=== PATIENT | female | born 1995 | race Caucasian/White ===

== ENCOUNTER 2018-10-06 10:51 | Inpatient (IN) ==
[2018-10-06] MEDS ORDERED: ROMAZICON (DOSE) IV ONE (10:57)
[2018-10-06] MEDS ORDERED: NS 500 ML IV ONE (10:57)
[2018-10-06 11:04] LABS: BLOOD TYPE ARTERIAL; SAMPLE BLOOD
[2018-10-06 11:09] LABS: ALLEN TEST YES; BE -5.8 mmoll (-3.0-3.0); HCO3-(ACT) 20.4 mmoll (20.0-26.0); METHB 1.1 % (0.0-1.5); O2HB 97.9 % (95.0-99.0); PCO2(98.6) 40 mmHg (35-45); PO2(98.6) 373 mmHg (60-100); THB 11.6 g/dL (11.5-17.4); pH(98.6) 7.31 (7.35-7.45)
[2018-10-06 11:10] LABS: MODALITY NRB
[2018-10-06] MEDS ORDERED: ATIVAN IV ONE (11:16)
[2018-10-06] MEDS ORDERED: ATIVAN ONE (11:18)
--- NOTE | 2018-10-06 11:18 | Diag Imaging Result Doc PS360 ---
EXAM: CHEST-PORTABLE HISTORY: overdose TECHNIQUE: Chest single view COMPARISON: None. FINDINGS: Poor inspiratory effort. The heart is not enlarged. The vessels are not distended. There are no infiltrates. No effusion identified. IMPRESSION: Negative exam. Electronically signed by Zaheer Carson 10/06/2018 11:16 AM
[2018-10-06 11:22] LABS: BASO# 0.03 X1000 (0.0-0.2); BASO% 0.3 % (0.0-0.8); EOS# 0.05 X1000 (0.0-0.7); EOS% 0.5 % (0.0-10.0); HEMATOCRIT 35.7 % (37.0-47.0); HEMOGLOBIN 11.7 g/dL (12.0-16.0); IMM GRAN# 0.02 X1000 (0.0-0.04); IMM GRAN% 0.2 % (0.0-0.5); LYMPH# 2.35 X1000 (1.2-3.4); LYMPH% 23.7 % (20.5-51.1); MCH 28.9 PG (27-31); MCHC 32.8 g/dL (33-37); MCV 88.1 FL (81-99); MONO# 0.74 X1000 (0.11-0.59); MONO% 7.5 % (1.7-9.3); MPV 9.2 FL (7.4-10.4); NEUT# 6.71 X1000 (1.4-6.5); NEUT% 67.8 % (42.2-75.2); PLT 502 X1000 (130-400); RBC 4.05 XMIL (4.2-5.4); RDW 12.6 % (11.5-14.5)
[2018-10-06 11:36] LABS: AGAP 19; ALB/GLOB RATIO 1.3; ALBUMIN 4.3 g/dL (3.5-5.0); ALKALINE PHOSPHATASE 89 U/L (32-104); BUN 5 mg/dL (8-22); CALCIUM 9.2 mg/dL (8.8-10.2); CHLORIDE 106 mmol/L (98-107); COSMO 284; CREATININE 0.6 mg/dL (0.5-0.9); ESTIMATED GFR > 60; GLUCOSE 93 mg/dL (70-104); GOT 12 U/L (10-30); GPT 14 U/L (10-36); SODIUM 144 mmol/L (136-145); TCO2 19 mmol/L (25-35); TOTAL BILIRUBIN 0.22 mg/dL (0.20-1.00); TOTAL PROTEIN 7.6 g/dL (6.3-8.3)
[2018-10-06 12:00] LABS: URINE SOURCE CATH
[2018-10-06 12:08] LABS: BILIRUBIN URINE NEGATIVE (NEGATIVE); BLOOD URINE SMALL (NEGATIVE); COLOR YELLOW; GLUCOSE URINE NEGATIVE (NEGATIVE); KETONE URINE NEGATIVE (NEGATIVE); LEUKOCYTES URINE NEGATIVE (NEGATIVE); NITRITE URINE NEGATIVE (NEGATIVE); PROTEIN URINE TRACE mg/dL (NEGATIVE); SP GRAVITY URINE 1.008; TURBIDITY URINE CLEAR (CLEAR); UROBILINOGEN URINE NORMAL (NORMAL)
[2018-10-06 12:09] LABS: UR EPITHELIAL CELLS <10 /HPF (<10); URINE BACTERIA NEGATIVE /HPF; URINE RBC <10 /HPF (<10); URINE WBC <10 /HPF (<10)
[2018-10-06 12:21] LABS: UR AMPHETAMINES QUAL NONE DETECTED (NONE DETECT); UR BARBITUATES QUAL NONE DETECTED (NONE DETECT); UR BENZODIAZEPIN QUAL PRESUMPTIVE POSITIVE (NONE DETECT); UR CANNABINOIDS QUAL NONE DETECTED (NONE DETECT); UR COCAINE QUAL NONE DETECTED (NONE DETECT); UR METHADONE QUAL NONE DETECTED (NONE DETECT); UR OPIATES QUAL NONE DETECTED (NONE DETECT); UR OXYCODONE QUAL NONE DETECTED (NONE DETECT); UR PCP QUAL NONE DETECTED (NONE DETECT)
--- NOTE | 2018-10-06 13:20 | EKG Report ---
Test Performed on : 10/06/2018 10:53:38 AM Test Reason : evaluate QRS Blood Pressure : / mmHG Vent. Rate : 131 BPM Atrial Rate : 131 BPM P-R Int : 140 ms QRS Dur : 076 ms QT Int : 316 ms P-R-T Axes : 047 047 026 degrees QTc Int : 466 ms Sinus tachycardia. Cannot rule out Inferior infarct , age undetermined Cannot rule out Anterior infarct , age undetermined Abnormal ECG No previous ECGs available Unconfirmed Result
[2018-10-06] MEDS ORDERED: NS + KCL 40 MEQ 1,000 ML IV ONE (13:46)
--- NOTE | 2018-10-06 13:50 | PROVIDER DOCUMENTATION ---
This chart was entered by Leticia Aguirre Scribe, acting as scribe for Queenie Jane MD. [id number] Abuse/Overdose - General Stated Complaint: OVERDOSE Time Seen by Provider: 10/06/18 10:53 Source: EMS Allergies/Adverse Reactions: Allergies Allergy/AdvReac Type Severity Reaction Status Date / Time No Known Allergies Allergy Verified 10/06/18 11:04 - History of Present Illness-Drug/Alcohol Nature of Presenting Problem: Patient is a 23 year old female who presents to the ED via EMS for overdose. EMS states patient's girlfriend stated patient took 6 mg of Klonopin, unknown amount of Amitriptyline and Zofran 1 hour ago. EMS states giving patient 2 mg of Versed in route due to patient being combative. This episode of drinking or use began:: 1 hour ago Situational problems related to:: reports: N/A Any injuries associated with this episode of intoxication?: No Similar Symptoms Previously?: No Recently seen or treated by another doctor?: No Review of Systems - Adult - REVIEW OF SYSTEMS - ADULT ROS:: unobtainable per condition Constitutional: reports: no symptoms reported Eyes: reports: no symptoms reported Ears, Nose, Mouth & Throat: reports: no symptoms reported Cardiovascular: reports: no symptoms reported Respiratory: reports: no symptoms reported Gastrointestinal: reports: no symptoms reported Genitourinary: reports: no symptoms reported Musculoskeletal: reports: no symptoms reported Integumentary: reports: no symptoms reported Neurological: reports: no symptoms reported Psychiatric: reports: no symptoms reported Endocrine: reports: no symptoms reported Hematologic/Lymphatic: reports: no symptoms reported Allergic/Immunologic: reports: no symptoms reported All Other Systems: Reviewed and Negative Past History - Adult - PAST MEDICAL HISTORY-ADULT Review of Records: reports: Nursing Assessment Review, Medications Reviewed, Social history reviewed & non-contributory. Major Childhood Illnesses: reports: denies history Cardiovascular: reports: denies history Respiratory: reports: denies history Gastrointestinal: reports: denies history Obstetrical/Gynecological: reports: denies history Genitourinary: reports: denies history Musculoskeletal: reports: denies history Neurological: reports: denies history Psychiatric: reports: denies history Endocrine/Immune: reports: denies history Other Conditions: reports: denies history - PRIOR SURGERIES/PROCEDURES Surgical/Procedure History: reports: reviewed, not pertinent - IMMUNIZATION STATUS Childhood Immunizations: See Nurse Assessment Flu Vaccine: See Nurse Assessment - FAMILY HISTORY Family History: reviewed, not pertinent Physical Exam-General - PHYSICAL EXAM-ADULT Initial Vital Signs Reviewed: Yes - CONSTITUTIONAL General Appearance: no apparent distress, obtunded. negative: anxious - RESPIRATORY Respiratory: chest non-tender, lungs clear, normal breath sounds. negative: crackles, rhonchi - CARDIOVASCULAR Cardiovascular: normal peripheral pulses, tachycardia. negative: systolic murmur - MUSCULOSKELETAL Extremity: normal inspection. negative: deformity, erythema, swelling - SKIN Integumentary: normal color, normal turgor, warm/dry. negative: cyanosis, ecchymosis, erythema, jaundice - NEUROLOGIC Neurologic: other (unable to assess per patient's condition) - PSYCHIATRIC Psych/Mental Status: other (obtunded). negative: anxious, disheveled Progress - PLAN OF CARE/RESULTS Progress/Plan/Lab Results: Vital Signs - 8 hr 10/06/18 10:57 10/06/18 12:14 10/06/18 12:17 Temperature 98.7 F Pulse Rate 130 H 105 H 103 H Respiratory Rate 13 22 21 Blood Pressure 137/86 94/48 O2 Sat by Pulse Oximetry 100 100 98 10/06/18 12:20 10/06/18 12:30 10/06/18 12:40 Temperature Pulse Rate 102 H 102 H 102 H Respiratory Rate 22 21 21 Blood Pressure O2 Sat by Pulse Oximetry 100 100 100 Laboratory Results - last 24 hr 10/06/18 10/06/18 10/06/18 10:47 10:47 10:50 WBC 9.90 RBC 4.05 L Hgb 11.7 L Hct 35.7 L MCV 88.1 MCH 28.9 MCHC 32.8 L RDW Std Deviation 12.6 Plt Count 502 H MPV 9.2 Immature Gran % (Auto) 0.2 Neut % (Auto) 67.8 Lymph % (Auto) 23.7 [place] % (Auto) 7.5 Eos % (Auto) 0.5 Baso % (Auto) 0.3 Immature Gran # (Auto) 0.02 Neut # (Auto) 6.71 H Lymph # (Auto) 2.35 [place] # (Auto) 0.74 H Eos # (Auto) 0.05 Baso # (Auto) 0.03 Specimen Type ARTERIAL Sample Site R RADIAL pH 7.31 L pCO2 40 pO2 373 H HCO3 20.4 Base Excess -5.8 L Oxyhemoglobin 97.9 ABG O2 Sat (Calculated) 17.0 ABG O2 Saturation 100.0 ABG Carboxyhemoglobin 1.00 ABG Methemoglobin 1.1 Gabriel Test YES A-a O2 Difference 290.0 Total Hemoglobin 11.6 Lactate 4.10 H Liter Flow 15.0 Blood Gas Modality NRB FiO2 % 100.0 Sodium 144 Potassium 3.0 L Chloride 106 Carbon Dioxide 19 L Anion Gap 19 BUN 5 L Creatinine 0.6 Estimated GFR/1.73 m2 > 60 BUN/Creatinine Ratio 8 Glucose 93 Calculated Osmolality 284 Calcium 9.2 Total Bilirubin 0.22 AST 12 ALT 14 Alkaline Phosphatase 89 Total Protein 7.6 Albumin 4.3 Globulin 3.3 Albumin/Globulin Ratio 1.3 Urine Source Urine Color Urine Turbidity Urine pH Ur Specific [place] Urine Protein Ur Glucose (Stick) Ur Ketones (Stick) Urine Blood Urine Nitrite Urine Bilirubin Urobilinogen Dipstick Urine Leukocytes Urine WBC (Auto) Urine RBC (Auto) U Epithel Cells (Auto) Urine Bacteria (Auto) Urine Opiates Screen Ur Oxycodone Screen Ur Methadone, Qual Ur Barbiturates Screen Ur Phencyclidine Scrn Ur Amphetamines Screen U Benzodiazepines Scrn Urine Cocaine Screen U Cannabinoids Screen 10/06/18 10/06/18 11:45 11:45 WBC RBC Hgb Hct MCV MCH MCHC RDW Std Deviation Plt Count MPV Immature Gran % (Auto) Neut % (Auto) Lymph % (Auto) [place] % (Auto) Eos % (Auto) Baso % (Auto) Immature Gran # (Auto) Neut # (Auto) Lymph # (Auto) [place] # (Auto) Eos # (Auto) Baso # (Auto) Specimen Type Sample Site pH pCO2 pO2 HCO3 Base Excess Oxyhemoglobin ABG O2 Sat (Calculated) ABG O2 Saturation ABG Carboxyhemoglobin ABG Methemoglobin Gabriel Test A-a O2 Difference Total Hemoglobin Lactate Liter Flow Blood Gas Modality FiO2 % Sodium Potassium Chloride Carbon Dioxide Anion Gap BUN Creatinine Estimated GFR/1.73 m2 BUN/Creatinine Ratio Glucose Calculated Osmolality Calcium Total Bilirubin AST ALT Alkaline Phosphatase Total Protein Albumin Globulin Albumin/Globulin Ratio Urine Source CATH Urine Color YELLOW Urine Turbidity CLEAR Urine pH 6.0 Ur Specific [place] 1.008 Urine Protein TRACE A Ur Glucose (Stick) NEGATIVE Ur Ketones (Stick) NEGATIVE Urine Blood SMALL A Urine Nitrite NEGATIVE Urine Bilirubin NEGATIVE Urobilinogen Dipstick NORMAL Urine Leukocytes NEGATIVE Urine WBC (Auto) <10 Urine RBC (Auto) <10 U Epithel Cells (Auto) <10 Urine Bacteria (Auto) NEGATIVE Urine Opiates Screen NONE DETECTED Ur Oxycodone Screen NONE DETECTED Ur Methadone, Qual NONE DETECTED Ur Barbiturates Screen NONE DETECTED Ur Phencyclidine Scrn NONE DETECTED Ur Amphetamines Screen NONE DETECTED U Benzodiazepines Scrn PRESUMPTIVE POSITIVE A Urine Cocaine Screen NONE DETECTED U Cannabinoids Screen NONE DETECTED Orders Category Date Time Status Restraint Initiate NonViolent ONCE Care 10/06/18 11:37 Active CHEST-PORTABLE [RAD] Stat Exams 10/06/18 10:57 Completed ABG [RESP] Routine Lab 10/06/18 10:50 Completed CBC WITH ELECTRONIC DIFF [HEME] Stat Lab 10/06/18 10:47 Completed CMP [COMPREHENSIVE METABOLIC PANEL] [CHEM] Stat Lab 10/06/18 10:47 Completed URINALYSIS W/POSS RFLX CULT [URINALYSIS] Stat Lab 10/06/18 11:45 Completed URINE DRUG SCREEN Stat Lab 10/06/18 11:45 Completed 0.9% Sodium Chloride Inj [Ns] 500 ml Med 10/06/18 10:57 Discontinued IV 999 mls/hr Flumazenil (Dose) [Romazicon (Dose)] Med 10/06/18 10:57 Discontinued 0.2 mg IV NOW ONE Lorazepam [Ativan] Med 10/06/18 11:16 Discontinued 0.5 mg IV NOW ONE Lorazepam [Ativan] Med 10/06/18 11:18 Discontinued 2 mg .ROUTE .STK-MED ONE Result Diagrams: 10/06/18 10:47 10/06/18 10:47 - REASSESSMENT Reassessment #1 Time Reassessed: 11:15 Status: other (patient received 0.2 mg of Romazicon and became alert and combative.) Reassessment #2 Time Reassessed: 12:55 Status: other (patient's girlfriend states patient took 20 to 30 pills of 50 mg of Amitriptyline.) - EKG 1 Time of EKG reading by physician:: 10:53 EKG Read and Signed by:: Queenie Jane EKG Interpretation (*Must complete 3 of following elements*): Abnormal (cannot rule out anterior infarct, age undetermined) Rate: 131 Rhythm: sinus tachycardia MN Interval: normal Comments: cannot rule out inferior infarct, age undetermined; - CONSULTS/PCP/HOSPITALIST Notification #1 *Consult/PCP/Hospitalist*: PHIL Villa for Hospitalist Time Discussed: 12:57 (Dr. Bustos accepted admit ) Reason/Comments: Dr. Jane consulted with Daisy about patient Consult Disposition: Will see in ED, Admit Departure - Departure Date of Disposition Decision: 10/06/18 Time of Disposition Decision: 12:58 DIAGNOSIS: Overdose Disposition: ADMITTED INPATIENT 09 Certified Medical Emergency: Emergent Condition: Stable Referrals and Follow-Ups: None,PCP [Primary Care Provider] - - Critical Care Note This patient required my direct & personal management of CC.: No Attestation - Physician/ DONALD Attestation The physician spent face to face time with patient:: Yes Advanced Practice Provider documentation review:: Supervising physician onsite and consulted in the evaluation and care of this patient. The physician did have a face to face encounter with the patient. This chart was documented by the indicated scribe, (Leticia Aguirre Scribe) and accurately reflects the services I performed and decisions made by me, Queenie Jane MD, as attested by the provider's signature.
[2018-10-06 14:22] LABS: ACETAMINOPHEN < 1.2 ug/mL (10-30); SALICYLATES < 3.00 mg/dL (3-10)
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
[2018-10-06 15:56] LABS: CK INDEX 1.3 (0.0-2.5); CK-MB 4.15 ng/mL (0.0-5.0)
[2018-10-06] MEDS ORDERED: ATIVAN IV PRN (16:10)
[2018-10-06] MEDS ORDERED: SODIUM CHLORIDE 0.9% INJ SCH (17:30)
[2018-10-06] MEDS ORDERED: PROTONIX IV SCH (17:30)
[2018-10-06] MEDS ORDERED: NS + KCL 20 MEQ 1,000 ML IV ONE (21:00)
[2018-10-06 22:55] LABS: CK INDEX 0.8 (0.0-2.5); CK-MB 3.08 ng/mL (0.0-5.0)
--- NOTE | 2018-10-07 06:47 | Diag Imaging Result Doc PS360 ---
EXAM: CHEST-PORTABLE HISTORY: FU TECHNIQUE: Chest single view COMPARISON: 10/06/2018 FINDINGS: The lungs are well expanded. The heart is not enlarged. The vessels are not distended. There are no infiltrates. No effusion identified. IMPRESSION: Negative exam. Electronically signed by Zaheer Carson 10/07/2018 6:45 AM
--- NOTE | 2018-10-07 07:02 | EKG Report ---
Test Performed on : 10/07/2018 06:43:29 AM Test Reason : eval QRS Blood Pressure : / mmHG Vent. Rate : 104 BPM Atrial Rate : 104 BPM P-R Int : 130 ms QRS Dur : 072 ms QT Int : 338 ms P-R-T Axes : 036 041 019 degrees QTc Int : 444 ms Sinus tachycardia. Cannot rule out Anterior infarct (cited on or before 06-OCT-2018) Abnormal ECG When compared with ECG of 06-OCT-2018 10:53, (Unconfirmed) Minimal criteria for Inferior infarct are no longer present Confirmed by Romaine ESPINO, Jett Waller ([id number]) on 10/08/2018 8:20:32 AM
[2018-10-07 08:44] LABS: BASO# 0.05 X1000 (0.0-0.2); BASO% 0.5 % (0.0-0.8); EOS# 0.16 X1000 (0.0-0.7); EOS% 1.4 % (0.0-10.0); HEMATOCRIT 35.5 % (37.0-47.0); HEMOGLOBIN 11.4 g/dL (12.0-16.0); IMM GRAN# 0.02 X1000 (0.0-0.04); IMM GRAN% 0.2 % (0.0-0.5); LYMPH# 2.19 X1000 (1.2-3.4); LYMPH% 19.8 % (20.5-51.1); MCH 29.2 PG (27-31); MCHC 32.1 g/dL (33-37); MCV 90.8 FL (81-99); MONO# 0.62 X1000 (0.11-0.59); MONO% 5.6 % (1.7-9.3); NEUT# 8.03 X1000 (1.4-6.5); NEUT% 72.5 % (42.2-75.2); PLT 476 X1000 (130-400); RBC 3.91 XMIL (4.2-5.4); RDW 12.9 % (11.5-14.5); WBC 11.07 X1000 (4.8-10.8)
[2018-10-07 09:27] LABS: ACETAMINOPHEN < 1.2 ug/mL (10-30); SALICYLATES < 3.00 mg/dL (3-10)
[2018-10-07 10:01] LABS: AGAP 11; ALB/GLOB RATIO 1.4; ALKALINE PHOSPHATASE 86 U/L (32-104); BUN 5 mg/dL (8-22); CALCIUM 8.9 mg/dL (8.8-10.2); CHLORIDE 109 mmol/L (98-107); COSMO 279; CREATININE 0.7 mg/dL (0.5-0.9); ESTIMATED GFR > 60; GLUCOSE 99 mg/dL (70-104); GOT 12 U/L (10-30); GPT 12 U/L (10-36); MAGNESIUM 2.1 mg/dL (1.5-2.7); POTASSIUM 3.9 mmol/L (3.5-5.1); SODIUM 141 mmol/L (136-145); TCO2 21 mmol/L (25-35); TOTAL BILIRUBIN 0.32 mg/dL (0.20-1.00); TOTAL PROTEIN 6.9 g/dL (6.3-8.3)
[2018-10-07 10:16] LABS: CK INDEX 0.8 (0.0-2.5); CK-MB 2.02 ng/mL (0.0-5.0)
[2018-10-07] MEDS ORDERED: LOPRESSOR PO SCH (12:45)
[2018-10-07] MEDS ORDERED: BUSPAR PO SCH (12:45)
--- NOTE | 2018-10-07 12:57 | EKG Report ---
Test Performed on : 10/07/2018 12:52:55 PM Test Reason : tachycardia Blood Pressure : / mmHG Vent. Rate : 127 BPM Atrial Rate : 127 BPM P-R Int : 136 ms QRS Dur : 076 ms QT Int : 308 ms P-R-T Axes : 051 053 018 degrees QTc Int : 447 ms Sinus tachycardia. Otherwise normal ECG When compared with ECG of 07-OCT-2018 06:43, (Unconfirmed) No significant change was found Confirmed by Romaine ESPINO, Jett Waller ([id number]) on 10/08/2018 8:20:58 AM
--- NOTE | 2018-10-07 13:03 | PROGRESS NOTE ---
DATE: 10/07/2018 SUBJECTIVE: Patient has no major complaints. OBJECTIVE: Blood pressure 121/91, heart rate 115, respiratory rate 20, temperature 99.3 degrees, and 100% on room air.Cardiovascular: She is tachy but sinus. Pulmonary: Bilateral breath sounds. Clear to auscultation. GI: Soft, nontender, and nondistended. Bowel sounds are positive. LABORATORY DATA: Really unremarkable. PROBLEMS: 1. Klonopin and TCA overdose. Clinically, she seems stable. The only thing remaining is her tachycardia, but I think that is probably related to just baseline tachycardia. Continue to monitor. 2. Severe depression, major depressive disorder. Most likely, possibly component of PTSD. She has never had treatment. She has never sought treatment. I think at this point she is medically stable. I have started some BuSpar for anxiety, and we will get her evaluated by [facility] for possible inpatient psychiatric treatment. DISPOSITION: Pending her psychiatric evaluation. cc: Pedro Jiménez MD
[2018-10-07 17:32] VITALS: BP 103/58
--- NOTE | 2018-10-07 18:40 | DISCHARGE SUMMARY ---
ADMISSION DATE: 10/06/2018 DISCHARGE DATE: 10/07/2018 PRIMARY CARE PHYSICIAN: Listed as none. ADMISSION DIAGNOSES: 1. Overdose on Klonopin and amitriptyline, unsure of intent. 2. Hypokalemia. 3. History of anxiety and depression. DISCHARGE DIAGNOSES: 1. Overdose on Klonopin and amitriptyline, unsure of intent. 2. Hypokalemia, resolved. 3. History of anxiety and depression. SUMMARY OF FINDINGS: This is a 23-year-old female who presented to the emergency room stating that she took six 1 mg Klonopin and 20 to 30 50 mg amitriptyline that was the girlfriend's father's old medication. She then called the ambulance, and then may have taken another type of medication so she would not feel like vomiting in the ED. She had been given Romazicon, and she immediately woke up and then had to be restrained. She was given Ativan to help calm her down, and placed in 4-point restraints. Her UDS was positive for benzodiazepines. She was admitted to the intensive care unit. Her potassium was supplemented, and is now normal at 3.9. We consulted [facility] for inpatient psychiatric treatment, and they accepted her. She will be discharged to their facility today for inpatient psychiatric treatment. DISCHARGE MEDICATIONS: We will continue her BuSpar 15 mg p.o. b.i.d., metoprolol 12.5 mg p.o. b.i.d., omeprazole 40 mg p.o. daily, and Benadryl 25 mg 2 capsules p.o. at bedtime. TIME SPENT WITH PATIENT: This a 33 minute discharge. Dictated by PHIL Perez for Pedro Jiménez MD cc: PHIL Perez MD
[2018-10-08] MEDS ORDERED: PRILOSEC PO SCH (07:00)
== END 2018-10-07 17:50 | DRG 918 ==
LOC: SUPCPDRO → ED 10:51 → SUATTDRO 13:28 → ICU 13:28
PROVIDERS: ATTEND Internal Medicine
CPT/HCPCS: 51701; 71010; 71045; 80053; 80101; 80152; 80196; 80301; 80307; 80324; 80329; 80335; 80345; 80346; 80353; 80358; 80361; 80365; 81001; 82003; 82550; 82553; 82805; 83735; 83992; 84443; 84484; 85025; 93005; 93010; 94799; 96374; 96375; 99285; A9270; C9113; G0431; G0434; G0479; G0480; G6038; G6039; J2060; J3480; J7040; S0164